=== PATIENT | male | born 1975 | race Two or more races ===

== ENCOUNTER 2024-03-14 11:10 | Inpatient (IN) | payer SELFPAY ==
[2024-03-14] VITALS (23 sets, daily range): BP systolic 42–171; BP diastolic 11–113; PULSE 0–145; RESP 0–39; TEMP 36.114–36.8628; O2SAT 55–96
[~2024-03-14] VITALS: Ht 162.6 cm; Wt 72.6 kg
[2024-03-14] MEDS ORDERED: ACETAMINOPHEN 650MG SUPP PR PRN (11:30)
[2024-03-14] MEDS ORDERED: ACETAMINOPHEN 650MG/20.3ML UDC NG PRN (11:30)
[2024-03-14] MEDS: PROPOFOL 10MG/ML 100ML 100 ML IV ONE (11:42)
[2024-03-14] MEDS: SODIUM CHLORIDE 0.9% 1,000 ML IV ONE ×3 (11:42→15:51)
[2024-03-14 11:44] LABS: CHLORIDE 90 mEq/L (98-107); POTASSIUM 3.8 mEq/L (3.5-5.1); SODIUM 130 mEq/L (136-145)
[2024-03-14 11:45] LABS: CARBON DIOXIDE 11 mEq/L (21-32)
[2024-03-14 11:46] LABS: CALCIUM 8.4 mg/dL (8.7-10.4)
[2024-03-14 11:50] LABS: CREATININE 2.6 mg/dL (0.6-1.3)
[2024-03-14 11:51] LABS: UREA NITROGEN BLOOD 36 mg/dL (9-23)
[2024-03-14 12:07] LABS: HEMATOCRIT. 34.8 % (42.0-52.0); HEMOGLOBIN. 10.6 g/dL (14.0-18.0); MEAN CORPUSCULAR HEMOGLOBIN 31.4 pg (28.0-32.0); MEAN CORPUSCULAR HGB CONC 30.5 g/dL (31.0-37.0); MEAN CORPUSCULAR VOLUME 103.1 fL (80.0-94.0); MEAN PLATELET VOLUME 9.1 fl (7.4-10.4); PLATELET 60 x1000/uL (130-400); RED BLOOD CELL COUNT 3.38 mill/uL (4.7-6.1); WHITE BLOOD COUNT 8.6 x1000/uL (4.5-11.0)
[2024-03-14 12:08] LABS: DIFFERENTIAL COMMENT 1
[2024-03-14] MEDS ORDERED: PHENYLEPHRINE 50 MG in DEXT 5% WATER 245 ML IV PRN (12:15)
[2024-03-14] MEDS ORDERED: VASOPRESSIN 20 UNIT in SODIUM CHLORIDE 0.9% 99 ML IV PRN (12:15)
[2024-03-14] MEDS ORDERED: NOREPINEPHRINE 8MG/250ML PMX 250 ML IV PRN (12:15)
[2024-03-14] MEDS: NOREPINEPHRINE 8MG/250ML PMX 250 ML IV STA (12:29)
[2024-03-14] MEDS: DEXTROSE 50% WATER 50ML SYRINGE IV ONE (12:29)
[2024-03-14 12:33] LABS: GLUCOSE 31 mg/dL (70-105)
[2024-03-14 12:34] LABS: PHOSPHORUS 10.2 mg/dL (2.5-4.9); TROPONIN I HIGH SENSITIVITY 83 ng/L (3.0-53)
[2024-03-14] MEDS: VASOPRESSIN 20 UNIT in SODIUM CHLORIDE 0.9% 99 ML IV PRN (12:35)
[2024-03-14] MEDS: PHENYLEPHRINE 50 MG in DEXT 5% WATER 245 ML IV PRN (12:36)
[2024-03-14] MEDS ORDERED: EPINEPHRINE 5 MG in SODIUM CHLORIDE 0.9% 245 ML IV PRN (12:45)
[2024-03-14] MEDS ORDERED: DEXTROSE 50% WATER 50ML SYRINGE IV PRN (13:00)
[2024-03-14] MEDS: BLOOD SUGAR DIAGNOSTIC STRIP TEST SCH (13:06)
[2024-03-14] MEDS: DEXT 5%/0.9% NACL 1,000 ML IV ONE (13:07)
[2024-03-14] MEDS: PANTOPRAZOLE SODIUM 40 MG/VIAL IV SCH (13:10)
[2024-03-14 13:13] LABS: ANISOCYTOSIS 1+; NUCLEATED RED BLOOD CELLS 1 /100 WBC; PLATELET ESTIMATE MARKEDLY DECREASED
[2024-03-14 13:18] LABS: BG BASE EXCESS -26.6 mmol/L (-2.0-3.0); BG CARBOXYHEMOGLOBIN 0.3 % (0.5-1.5); BG DEOXYHEMOGLOBIN 1.4 % (0.0-5.0); BG FRACTION INSPIRED OXYGEN 1005; BG HCO3 ACT 6.4 mmol/L (21.0-28.0); BG METHEMOGLOBIN 0.2 % (0.5-1.5); BG OXYGEN SATURATION 98.6 % (94.0-98.0); BG OXYHEMOGLOBIN 98.1 % (94.0-98.0); BG PCO2 37.9 mmHg (35.0-48.0); BG PH 6.844 (7.350-7.450); BG PO2 242.7 mmHg (83.0-108.0); BG SAMPLE SITE LEFT RADIAL; BG TOTAL HEMOGLOBIN 10.9 g/dL (13.5-17.5); BG VENT MODE VENT - AC
[2024-03-14] MEDS: INSULIN LISPRO 100 UNITS/ML SUBCUT SCH (13:20)
[2024-03-14] MEDS ORDERED: SODIUM BICARBONATE 8.4% 50MEQ/50ML SYR IV ONE (14:30)
[2024-03-14] MEDS: NOREPINEPHRINE 32 MG in DEXT 5% WATER 218 ML IV PRN (14:47)
[2024-03-14] MEDS: SODIUM BICARBONATE 8.4% 50MEQ/50ML SYR IV NR ×2 (14:48→18:40)
[2024-03-14] MEDS: SODIUM BICARBONATE 100 MEQ in DEXTROSE 5% WATER 900 ML IV SCH (15:08)
[2024-03-14] MEDS ORDERED: HYDRALAZINE 20MG/ML VIAL IV PRN (15:30)
[2024-03-14] MEDS ORDERED: ACETAMINOPHEN 325MG TABLET PO PRN (15:30)
[2024-03-14] MEDS ORDERED: IPRATROPIUM/ALBUTEROL 0.5-3(2.5)MG/3ML NEB HHN PRN (15:30)
[2024-03-14] MEDS ORDERED: ONDANSETRON HCL 4MG/2ML INJ IV PRN (15:30)
[2024-03-14] MEDS: DOPAMINE 400MG/250ML PREMIX 250 ML IV PRN (15:37)
[2024-03-14] MEDS ORDERED: PIPERACILLIN/TAZO 3.375G/50ML 50 ML IV SCH (16:00)
[2024-03-14] MEDS ORDERED: MAGNESIUM 2 G PREMIX 50 ML IV NR (16:30)
[2024-03-14] MEDS: VANCOMYCIN 1.5GM/250ML IV NR (16:44)
[2024-03-14 16:50] LABS: CHLORIDE 95 mEq/L (98-107); POTASSIUM 4.4 mEq/L (3.5-5.1); SODIUM 134 mEq/L (136-145)
[2024-03-14 16:52] LABS: CALCIUM 7.3 mg/dL (8.7-10.4)
[2024-03-14 16:56] LABS: CREATININE 2.7 mg/dL (0.6-1.3); GLUCOSE 133 mg/dL (70-105); UREA NITROGEN BLOOD 34 mg/dL (9-23)
[2024-03-14 16:57] LABS: ETHANOL BLOOD 40 mg/dL (<10)
[2024-03-14 16:59] LABS: ALANINE AMINOTRANSFERASE 720 IU/L (10-49); ALBUMIN 2.6 g/dL (3.2-4.8); AMMONIA 106 uMol/L (<32); BILIRUBIN DIRECT 1.4 mg/dL (<=3.0); BILIRUBIN TOTAL 1.9 mg/dL (0.1-1.0); PROTEIN TOTAL 4.8 g/dL (6.0-8.3)
[2024-03-14 17:06] LABS: CARBON DIOXIDE < 10 mEq/L (21-32)
[2024-03-14 17:09] LABS: ASPARTATE AMINOTRANSFERASE 4070 IU/L (<34)
[2024-03-14 17:29] LABS: LACTIC ACID 20.6 mmol/L (0.4-2.0)
[2024-03-14] MEDS: EPINEPHRINE 5 MG in SODIUM CHLORIDE 0.9% 245 ML IV PRN (17:45)
[2024-03-14] MEDS ORDERED: EPINEPHRINE 10 MG in SODIUM CHLORIDE 0.9% 240 ML IV PRN (18:00)
[2024-03-14] MEDS ORDERED: PHENYLEPHRINE 100 MG in DEXT 5% WATER 240 ML IV PRN (18:00)
[2024-03-14] MEDS ORDERED: IPRATROPIUM/ALBUTEROL 0.5-3(2.5)MG/3ML NEB HHN SCH (18:00)
[2024-03-14 18:02] LABS: TROPONIN I HIGH SENSITIVITY 345 ng/L (3.0-53)
[2024-03-14 18:07] LABS: CREATINE KINASE 9429 IU/L (46-171)
[2024-03-14 18:13] LABS: BG BASE EXCESS -28.7 mmol/L (-2.0-3.0); BG CARBOXYHEMOGLOBIN 0.2 % (0.5-1.5); BG FRACTION INSPIRED OXYGEN 60; BG HCO3 ACT 5.1 mmol/L (21.0-28.0); BG OXYHEMOGLOBIN 80.8 % (94.0-98.0); BG PCO2 34.2 mmHg (35.0-48.0); BG PH 6.789 (7.350-7.450); BG PO2 73.1 mmHg (83.0-108.0); BG SAMPLE SITE LEFT FEMORAL; BG TOTAL HEMOGLOBIN 10.8 g/dL (13.5-17.5); BG VENT MODE VENT - AC
[2024-03-14] MEDS: EPINEPHRINE 10 MG in SODIUM CHLORIDE 0.9% 240 ML IV PRN (18:37)
[2024-03-14] MEDS: PHENYLEPHRINE 100 MG in DEXT 5% WATER 240 ML IV PRN (18:40)
[2024-03-14] MEDS ORDERED: EPINEPHRINE 20 MG in SODIUM CHLORIDE 0.9% 480 ML IV PRN (19:00)
[2024-03-14] MEDS ORDERED: NOREPINEPHRINE 32 MG in DEXT 5% WATER 218 ML IV PRN (20:00)
[2024-03-14 20:21] LABS: CHLORIDE 98 mEq/L (98-107); SODIUM 136 mEq/L (136-145)
[2024-03-14 20:22] LABS: CALCIUM 6.9 mg/dL (8.7-10.4)
[2024-03-14 20:27] LABS: CREATININE 2.9 mg/dL (0.6-1.3); GLUCOSE 99 mg/dL (70-105); UREA NITROGEN BLOOD 32 mg/dL (9-23)
[2024-03-14] MEDS ORDERED: LACTATED RINGERS 1,000 ML, LACTATED RINGERS 1,000 ML IV SCH ×2 (20:50→21:00)
[2024-03-14] MEDS ORDERED: SODIUM BICARBONATE 8.4% 50MEQ/50ML SYR IV NR (21:00)
[2024-03-14] MEDS ORDERED: ATORVASTATIN CALCIUM 40MG TABLET PO SCH (21:00)
[2024-03-14 21:01] LABS: CARBON DIOXIDE < 10 mEq/L (21-32); PHOSPHORUS 12.9 mg/dL (2.5-4.9)
[2024-03-14] MEDS ORDERED: SODIUM BICARBONATE 150 MEQ in DEXTROSE 5% WATER 850 ML IV SCH (22:00)
[2024-03-15] MEDS ORDERED: SODIUM BICARBONATE 150 MEQ in DEXTROSE 5% WATER 850 ML IV SCH (04:00)
[2024-03-15] MEDS ORDERED: ASPIRIN 81MG TABLET PO SCH (09:00)
[2024-03-15] MEDS ORDERED: VANCOMYCIN 750MG/150ML (BAXTER) IV SCH (16:00)
== END 2024-03-14 23:15 | DRG 133 ==
LOC: ER 11:10 → MICUSO 12:53 → EDBEDREQTM 12:54 → EDBEDREQ 12:54
PROVIDERS: ADMIT Internal Medicine; ATTEND Internal Medicine
PROC: 0BH17EZ Insertion of Endotracheal Airway into Trachea, Via Natural or Artificial Opening (ICD-10-PCS; principal; 2024-03-14)
PROC: 5A1935Z Respiratory Ventilation, Less than 24 Consecutive Hours (ICD-10-PCS; 2024-03-14)
PROC: 5A12012 Performance of Cardiac Output, Single, Manual (ICD-10-PCS; 2024-03-14)
PROC: 06HY33Z Insertion of Infusion Device into Lower Vein, Percutaneous Approach (ICD-10-PCS; 2024-03-14)
PROC: 03HY32Z Insertion of Monitoring Device into Upper Artery, Percutaneous Approach (ICD-10-PCS; 2024-03-14)
PROC: B54MZZA Ultrasonography of Right Upper Extremity Veins, Guidance (ICD-10-PCS; 2024-03-14)
DX: J96.01 Acute respiratory failure with hypoxia (principal); I46.9 Cardiac arrest, cause unspecified; R57.9 Shock, unspecified; G93.41 Metabolic encephalopathy; G93.1 Anoxic brain damage, not elsewhere classified; N17.9 Acute kidney failure, unspecified; I47.20 Ventricular tachycardia, unspecified; E87.21 Acute metabolic acidosis; E87.1 Hypo-osmolality and hyponatremia; F10.20 Alcohol dependence, uncomplicated; E16.2 Hypoglycemia, unspecified
CPT/HCPCS: 31500; 36415; 36600; 71045; 80048; 80076; 80320; 82140; 82375; 82550; 82805; 82962; 83036; 83605; 83735; 83880; 84100; 84145; 84484; 85025; 86850; 86900; 92950; 93005; 99291; J1265; J2470; J2704; J3370; J3490; J7030; J7040; J7050; J7060; J7070; G0480